=== PATIENT | male | born 1995 | race Hispanic/Latino ===

== ENCOUNTER 2024-06-14 18:03 | Inpatient (IN) | payer SELFPAY ==
[2024-06-14] MEDS ORDERED: Sodium Chloride 0.9% 100 ML ONE (18:10)
[2024-06-14] MEDS ORDERED: Boostrix 0.5 ML (Tdap) VIAL (>/=7 yrs of age) ONE (18:10)
[2024-06-14] MEDS ORDERED: KETAMINE 100 MG/ML (5ML VIAL) ONE (18:10)
[2024-06-14] MEDS ORDERED: CEFAZOLIN 2 GM VIAL ONE (18:10)
[2024-06-14] MEDS ORDERED: Ketorolac Tromethamine 30 MG (1 mL) VIAL ONE (18:33)
[2024-06-14] MEDS ORDERED: Ondansetron PF 4 MG/2 ML Vial ONE (18:33)
[2024-06-14] MEDS ORDERED: Morphine 4 MG/ML VIAL ONE (18:33)
[2024-06-14] MEDS ORDERED: traMADol HCl 50 MG TAB PO PRN (18:59)
[2024-06-14] MEDS ORDERED: hydrALAZINE 20 MG/ML VIAL SLOW IVP PRN (18:59)
[2024-06-14] MEDS ORDERED: Glucagon 1 MG/ML KIT IM PRN (18:59)
[2024-06-14] MEDS ORDERED: Dextrose 50% Abboject 50 ML SYRINGE SLOW IVP PRN (18:59)
[2024-06-14] MEDS ORDERED: Dextrose 5% in Water 1,000 ML IV PRN (18:59)
[2024-06-14] MEDS ORDERED: Ondansetron PF 4 MG/2 ML Vial IVP PRN (18:59)
[2024-06-14] MEDS ORDERED: Ondansetron ODT 4 MG TAB PO PRN (18:59)
[2024-06-14] MEDS ORDERED: Acetaminophen 325 MG TAB PO PRN (18:59)
[2024-06-14] MEDS: Morphine 2 MG/ML VIAL SLOW IVP PRN (23:50)
[2024-06-15] MEDS: Methocarbamol 500 MG TAB PO PRN (01:12)
[2024-06-15] MEDS: HYDROcodone/Acetaminophen 5/325 mg Tablet PO PRN (01:13)
[2024-06-15] MEDS: CEFAZOLIN 2 GM in Sodium Chloride 0.9% 100 ML IVPB SCH (01:14)
[2024-06-15 01:22] VITALS: BMI 25.2
[2024-06-15 04:44] LABS: #Basophils 0.04 10x3/uL (0.0-0.2); %Basophils 0.4 % (0.0-1.0); %Eosinophils 2.5 % (0.0-10.0); %Lymphocytes 32.8 % (21.0-51.0); %Monocytes 9.5 % (0.0-10.0); %Neutrophils 54.6 % (42.0-75.0); Hematocrit 37.9 % (42.0-52.0); Hemoglobin 13.2 g/dL (14.0-18.0); Mean Corpuscular HGB CONC 34.8 g/dL (32.0-36.0); Mean Corpuscular Hemoglobin 29.2 pg (27.0-31.0); Mean Corpuscular Volume 83.8 fL (78.0-98.0); Platelet Count 342 10x3/uL (130-400); RBC Distribution Width 13.3 % (11.5-14.5); Red Blood Cell (RBC) Count 4.52 mill/uL (4.70-6.10)
[2024-06-15 05:02] LABS: Anion Gap 14 mmol/L (10-20); BUN (Urea Nitrogen) 11 mg/dL (8.9-20.6); Calc. Creatinine Clearance 123 mL/min (70-130); Calcium 8.6 mg/dL (7.8-10.44); Carbon Dioxide 21 mmol/L (22-29); Chloride 106 mmol/L (98-107); Estimated GFR 108; Glucose 101 mg/dL (70-105); Potassium 3.6 mmol/L (3.5-5.1); Sodium 137 mmol/L (136-145)
[2024-06-15] MEDS ORDERED: Bupivacaine PF 0.5% 30 ML VIAL ONE (13:09)
[2024-06-15] MEDS ORDERED: PROPOFOL 20 ML ONE (13:22)
[2024-06-15] MEDS ORDERED: fentaNYL PF 100 MCG/2 ML SYRINGE ONE (13:22)
[2024-06-15] MEDS ORDERED: Lidocaine 1% PF 5 ML VIAL ONE (14:41)
[2024-06-15] MEDS ORDERED: Dexamethasone 20 MG/5 ML VIAL ONE (14:45)
[2024-06-15] MEDS ORDERED: Ketorolac Tromethamine 30 MG (1 mL) VIAL ONE (14:45)
[2024-06-15] MEDS ORDERED: CEFAZOLIN 1 GM VIAL ONE (15:08)
[2024-06-15] MEDS ORDERED: fentaNYL 50 mcg/mL 1 mL Vial ONE (15:22)
[2024-06-15] MEDS ORDERED: Ondansetron PF 4 MG/2 ML Vial ONE (16:11)
[2024-06-15] MEDS ORDERED: HYDROmorphone 2 MG/ML VIAL ONE (16:16)
[2024-06-15] MEDS: Acetaminophen 325 MG TAB PO SCH (21:23)
[2024-06-15] MEDS: TETANUS, DIPHTHERIA TOX,ADULT (TDVAX) 0.5 ML VIAL IM ONE (22:43)
[2024-06-16] MEDS: Enoxaparin 40 MG (0.4 mL) SYRINGE SC SCH (09:34)
[2024-06-16 12:33] VITALS: BP 121/75; TEMP 97.7
[2024-06-16] MEDS: oxyCODONE 5 MG TAB PO PRN (12:33)
== END 2024-06-16 15:00 | disposition home or self-care (01) | DRG 494 ==
LOC: ERS 18:03 → SURG B 18:59
PROVIDERS: ADMIT Surgery; ATTEND Surgery
PROC: 0QSJ04Z Reposition Right Fibula with Internal Fixation Device, Open Approach (ICD-10-PCS; principal; 2024-06-15)
PROC: 0QSG04Z Reposition Right Tibia with Internal Fixation Device, Open Approach (ICD-10-PCS; 2024-06-15)
DX: S82.841B Displaced bimalleolar fracture of right lower leg, initial encounter for open fracture type I or II (principal); W18.30XA Fall on same level, unspecified, initial encounter; Z79.899 Other long term (current) drug therapy; Z79.82 Long term (current) use of aspirin; Z23 Encounter for immunization
CPT/HCPCS: 27810; 36415; 80048; 85025; 90471; 90715; 93005; 96374; 96375; 99152; C1713; G0390; J0665; J0690; J1100; J1171; J1650; J1885; J2272; J2405; J2704; J3010